=== PATIENT | male | born 1960 | race Hispanic/Latino ===

== ENCOUNTER 2018-10-11 14:03 | Outpatient (CLI) | payer MEDICARE | END 2018-10-11 14:04 | disposition home or self-care (01) | LOC: CARDIO 14:04 ==

== ENCOUNTER 2018-11-05 13:50 | Outpatient (CLI) | payer MEDICARE | END 2018-11-05 13:51 | disposition home or self-care (01) | LOC: CARDIO 13:50 ==

== ENCOUNTER 2019-02-08 07:11 | Outpatient (CLI) | payer MEDICARE | END 2019-02-08 07:12 | disposition home or self-care (01) | LOC: CARDIO 07:11 ==